=== PATIENT | female | born 1960 | race Caucasian/White ===

== ENCOUNTER → 2021-09-08 | Outpatient (CLI) | payer OTHER ==
--- NOTE | 2021-09-13 10:05 | CT ---
EXAMINATION TYPE: CT abdomen pelvis wo con DATE OF EXAM: 09/08/2021 COMPARISON: 01/02/2014 CT abdomen pelvis HISTORY: right flank pain CT DLP: 251.7 mGycm Automated exposure control for dose reduction was used. TECHNIQUE: Helical acquisition of images was performed from the lung bases through the pelvis. CONTRAST: Performed without oral or intravenous contrast. Lack of contrast limits evaluation of the abdominopel quang viscera and vasculature. FINDINGS: LUNG BASES: Normal. LIVER: Normal attenuation and size. BILIARY SYSTEM: No intrahepatic or extrahepatic biliary ductal dilatation. PANCREAS: No peripancreatic stranding or fluid collection. SPLEEN: Not enlarged. ADRENALS: Normal. KIDNEYS: No hydronephrosis or urolithiasis. BOWEL: No obstruction or thickening. Colonic diverticulosis. No acute diverticulitis. Normal appendi x. PERITONEUM: No pneumoperitoneum. No free fluid. LYMPH NODES: No lymphadenopathy. PELVIS: Unremarkable unenhanced urinary bladder, uterus, and left adnexa. Right adnexa demonstrates a symmetric nonsimple hypodensity measuring up to 2.7 cm. VASCULATURE: No abdominal aortic aneurysm. Mild calcified atherosclerotic disease. MUSCULOSKELETAL: Degenerative changes of the spine and bilateral hips. IMPRESSION: 1. No acute findings to explain patient's right flank pain. No hydronephrosis or urolithiasis. 2. Asymmetric appearance of the right adnexa. Findings may represent normal ovary adjacent to nonenh anced small bowel loops versus indeterminate adnexal lesion. Recommend pelvic ultrasound for further characterization.
== END | disposition home or self-care (01) ==
LOC: RADCTMAIN 18:19
PROVIDERS: ATTEND Family Medicine
DX: R10.9 Unspecified abdominal pain (principal)
CPT/HCPCS: 74176

== ENCOUNTER → 2024-09-17 | Outpatient (CLI) | payer BC ==
--- NOTE | 2024-09-20 12:45 | MM ---
Reason for Exam: Screening (asymptomatic). Last mammogram was performed 1 year(s) and 4 month(s) ago. Patient History: Menarche at age 14. First Full-Term at age 27. Postmenopausal. Sister had breast cancer, age 64. Risk Values: Gabrielle 5 year model risk: 3.1%. NCI Lifetime model risk: 12.8%. Prior Study Comparison: 05/06/2014 Bilateral Screening Mammogram, [facility]. 05/15/2023 Bilateral MG 3D diag mammo w/cad CE, [facility]. Tissue Density: The breasts are heterogeneously dense, which may obscure small masses. Findings: Analyzed By CAD. Unchanged areas of asymmetric density. Unchanged scattered round calcifications on both sides. There is no suspicious group of microcalcifications or new suspicious mass in either breast. Overall Assessment: Benign, BI-RAD 2 Management: Screening Mammogram of both breasts in 1 year. See note below in regards to patient's increased 5 year Gabrielle score. Patient should continue monthly self-breast exams. A clinical breast exam by your physician is recommended on an annual basis. This exam should not preclude additional follow-up of suspicious palpable abnormalities. Note on Gabrielle scores and lifetime risk: 1. A Gabrielle score greater than 3% is considered moderate risk. If this is the case, consider specialist referral to assess eligibility for a risk reducing agent. 2. If overall lifetime risk for the development of breast cancer is 20% or higher, the patient may qualify for future screening with alternating mammogram and breast MRI. [facility], , 09/20/2024 12:41 PM. Electronically signed and approved by: Selena Chambers M.D. Radiologist
== END | disposition home or self-care (01) ==
LOC: RADMAMWWP 13:56
PROVIDERS: ATTEND Family Medicine
DX: Z12.31 Encounter for screening mammogram for malignant neoplasm of breast (principal); Z78.0 Asymptomatic menopausal state; Z80.3 Family history of malignant neoplasm of breast; R92.333 Mammographic heterogeneous density, bilateral breasts
CPT/HCPCS: 77063; 77067